=== PATIENT | female | born 1985 | race Caucasian/White ===

== ENCOUNTER 2016-12-01 09:29 | Emergency (ER) | payer BC ==
[~2016-12-01] VITALS: Ht 154.9 cm; Wt 72.5 kg
[~2016-12-01 09:29] MED LIST: ACET500C5 PO; IBUP-1542 PO; ONDA4TAB35 PO; PSEU120T51 PO; UDROBDM PO
[2016-12-01 09:38] VITALS: Ht 154.9 cm; Wt 72.5 kg
--- NOTE | 2016-12-01 10:20 | ERD ---
ER Documentation Chief Complaint Date/Time DATE: 12/01/16 TIME: 10:15 Chief Complaint R.side facial numbness x 4 days HPI 31-year-old female presents emergency department for numbness to the right side of her face. Stated that her coworker noticed that she has right-sided facial droop today at around 7:10 AM. She also stated that she has twitching below her right eye on the started 4 days ago/Monday. Patient is insisting CT brain and work-up. LMP: 11/11/2016 M1. No known drug allergies. Past medical history of GERD. No surgeries. Does not take any prescription medication at home. 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 Denies smoking, use of alcohol, use of illegal drugs. ROS All systems reviewed and are negative except as per history of present illness. Medications Home Meds Active Scripts Lorazepam* (Lorazepam*) 1 Mg Tablet, 1 MG PO Q8, #10 TAB Prov:PASILABANMECHEAR F 12/01/16 Hydroxyzine Hcl* (Hydroxyzine Hcl*) 10 Mg Tablet, 10 MG PO Q6H Y for ANXIETY, # 30 TAB Prov:RAJEEV RAHMAN F 12/01/16 Pseudoephedrine Hcl (Sudafed 12 Hour) 120 Mg Tablet.sa, 120 MG PO DAILY, #30 0 Refills Prov:ABE DUTTON PA-C 05/12/15 Guaifenesin-Dextromethorphan* (Robitussin* DM) 100MG/10MG/5ML Syrup, 5 ML PO Q6H Y for COUGH, #120 ML 0 Refills Prov:ABE DUTTON PA-C 05/12/15 Ondansetron Hcl* (Zofran* ODT) 4 mg -ODT Tab.disper, 4 MG PO DAILY Y for NAUSEA AND/OR VOMITING, #10 TAB 0 Refills Prov:ABE DUTTON PA-C 05/12/15 Ibuprofen* (Motrin*) 600 Mg Tab, 600 MG PO Q6, #30 TAB 0 Refills Prov:ABE DUTTON PA-C 05/12/15 Acetaminophen* (Tylophen*) 500 Mg Capsule, 1 CAP PO Q6H Y for PAIN AND OR ELEVATED TEMP, #30 CAP 0 Refills Prov:ABE DUTTON PA-C 05/12/15 Reported Medications [None] No Conflict Check 09/29/09 Allergies Allergies: Coded Allergies: No Known Allergy (Verified , 12/01/16) PMhx/Soc History of Surgery: No Anesthesia Reaction: No Hx Neurological Disorder: No Hx Respiratory Disorders: No Hx Cardiac Disorders: No Hx Psychiatric Problems: No Hx Miscellaneous Medical Probl: No Hx Alcohol Use: No Hx Substance Use: No Hx Tobacco Use: No Physical Exam Vitals Vital Signs Date Time Temp Pulse Resp B/P Pulse Ox O2 Delivery O2 Flow Rate FiO2 12/01/16 12:18 97.9 78 18 122/84 98 Room Air 12/01/16 09:38 97.6 89 16 134/88 99 Physical Exam Const: [] Head: Atraumatic Eyes: Normal Conjunctiva. PERRLA. No pain on eye movement. Able to close and open bilateral eyes without difficulty. Able to grimace. Symmetrical face. ENT: Normal External Ears, Nose and Mouth. Neck: Full range of motion..~ No meningismus. Resp: Clear to auscultation bilaterally. Respirations even and unlabored. Lung sounds are clear on auscultation. Cardio: Regular rate and rhythm, no murmurs Abd: Soft, non tender, non distended. Normal bowel sounds Skin: No petechiae or rashes Back: No midline or flank tenderness Ext: No cyanosis, or edema Neur: Awake and alert x 4. No facial droop. No unilateral deficits. Cranial nerves II-XII are intact. Romberg test is negative. Psych: Normal Mood and Affect Result Diagram: 12/01/16 1035 12/01/16 1035 Results 24 hrs Laboratory Tests Test 12/01/16 10:35 White Blood Count 7.110^3/ul Red Blood Count 4.9710^6/ul Hemoglobin 14.9g/dl Hematocrit 43.9% Mean Corpuscular Volume 88.3fl Mean Corpuscular Hemoglobin 30.0pg Mean Corpuscular Hemoglobin Concent 33.9g/dl Red Cell Distribution Width 12.8% Platelet Count 49196^3/UL Mean Platelet Volume 10.1fl Neutrophils % 78.6% Lymphocytes % 15.9% Monocytes % 4.4% Eosinophils % 0.6% Basophils % 0.4% Nucleated Red Blood Cells % 0.0/100WBC Neutrophils # 5.610^3/ul Lymphocytes # 1.110^3/ul Monocytes # 0.310^3/ul Eosinophils # 0.010^3/ul Basophils # 0.010^3/ul Nucleated Red Blood Cells # 0.010^3/ul Prothrombin Time 12.9Sec Prothrombin Time Ratio 1.0 INR International Normalized Ratio 0.97 Activated Partial Thromboplast Time 36.9Sec Sodium Level 141mmol/L Potassium Level 4.0mmol/L Chloride Level 107mmol/L Carbon Dioxide Level 24mmol/L Anion Gap 14 Blood Urea Nitrogen 8mg/dl Creatinine 0.66mg/dl Glucose Level 103mg/dl Calcium Level 9.2mg/dl Total Bilirubin 0.5mg/dl Direct Bilirubin 0.00mg/dl Indirect Bilirubin 0.5mg/dl Aspartate Amino Transf (AST/SGOT) 32IU/L Alanine Aminotransferase (ALT/SGPT) 50IU/L Alkaline Phosphatase 100IU/L Troponin I < 0.012ng/ml Total Protein 7.8g/dl Albumin 4.5g/dl Globulin 3.30g/dl Albumin/Globulin Ratio 1.36 Procedures/MDM 31-year-old female presents emergency department for numbness to the right side of her face. Stated that her coworker noticed that she has right-sided facial droop today at around 7:10 AM. She also stated that she has twitching below her right eye on the started 4 days ago/Monday. Patient is insisting CT brain and work-up. LMP: 11/11/2016 M1. No known drug allergies. Past medical history of GERD. No surgeries. Does not take any prescription medication at home. 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 Denies smoking, use of alcohol, use of illegal drugs. Physical exam: PERRLA. No pain on eye movement. Able to grimace without difficulty. Symmetrical face. No facial droop. No unilateral deficits. Cranial nerves II-XII are intact. Romberg test is negative. Respirations even and unlabored. Lung sounds are clear on auscultation. Disease process was explained to the patient. She verbalized understanding and agreed with the diagnostic tests, treatment, plan of care. EKG: Normal sinus rhythm with ventricular rate of 74 bpm. No evidence of acute myocardial infarction. No evidence of ischemia. CT of the brain: No evidence of intracranial masses hemorrhages or midline shift. Chronic right mastoiditis. Blood works: Negative. POC urine : Negative. Treatment: Ativan PO. Reevaluation: PERRLA. No pain on eye movement. Able to grimace without difficulty. Symmetrical face. No facial droop. No unilateral deficits. Cranial nerves II-XII are intact. Romberg test is negative. Respirations even and unlabored. Lung sounds are clear on auscultation. No neurovascular deficits. No neurological deficits. Ambulatory with steady gait. Stated that she is ready to go back to work. Prescription: Ativan. Hydroxyzine. Follow-up with primary care physician the next 24-48 hours. PCP to refer patient to ENT the next 24-48 hours. Come back here in the emergency department for any new symptoms or any worsening of symptoms. All questions and concerns are answered. Patient verbalized understanding and agreed the plan of care. Hemodynamically stable on discharge. Departure Diagnosis: Primary Impression: Anxiety Additional Impressions: Chronic mastoiditis Stress at home Condition: Stable Additional Instructions: Follow-up with primary care physician the next 24-48 hours. PCP to refer patient to ENT the next 24-48 hours. Come back here in the emergency department for any new symptoms or any worsening of symptoms. All questions and concerns are answered. Patient verbalized understanding and agreed the plan of care. RAJEEV RAHMAN Dec 01, 2016 10:20
[2016-12-01 10:46] LABS: BASOPHILS % 0.4 % (0.0-2.0); EOSINOPHILS % 0.6 % (0.0-7.0); HEMATOCRIT 43.9 % (37.0-47.0); HEMOGLOBIN 14.9 g/dl (12.0-16.0); LYMPHOCYTES # 1.1 10^3/ul (0.8-2.9); LYMPHOCYTES % 15.9 % (15.0-51.0); MEAN CORPUSCULAR HGB CONC 33.9 g/dl (32.0-37.0); MEAN CORPUSCULAR VOLUME 88.3 fl (82.0-101.0); MEAN PLATELET VOLUME 10.1 fl (7.4-10.4); MONOCYTE # 0.3 10^3/ul (0.3-0.9); MONOCYTES % 4.4 % (0.0-11.0); NEUTROPHIL # 5.6 10^3/ul (1.6-7.5); NEUTROPHILS % 78.6 % (39.0-77.0); PLATELET COUNT 300 10^3/UL (140-415); RED BLOOD COUNT 4.97 10^6/ul (4.20-5.40); RED CELL DISTRIBUTION WIDTH 12.8 % (11.5-14.5); WHITE BLOOD COUNT 7.1 10^3/ul (4.8-10.8)
[2016-12-01 11:04] LABS: INR 0.97; PROTIME 12.9 Sec (12.2-14.2)
[2016-12-01 11:05] LABS: PARTIAL THROMBOPLASTIN TIME 36.9 Sec (25.0-35.0)
[2016-12-01 11:09] LABS: ALANINE AMINOTRANSFERASE 50 IU/L (13-69); ALBUMIN 4.5 g/dl (3.3-4.9); ALBUMIN/GLOBULIN RATIO 1.36; ALKALINE PHOSPHATASE 100 IU/L (42-121); ANION GAP 14 (8-16); ASPARTATE AMINO TRANSFERASE 32 IU/L (15-46); BILIRUBIN,INDIRECT 0.5 mg/dl (0-1.1); BILIRUBIN,TOTAL 0.5 mg/dl (0.2-1.3); BLOOD UREA NITROGEN 8 mg/dl (7-20); CALCIUM 9.2 mg/dl (8.4-10.2); CARBON DIOXIDE 24 mmol/L (21-31); CHLORIDE 107 mmol/L (97-110); CREATININE 0.66 mg/dl (0.44-1.00); GLUCOSE 103 mg/dl (70-220); SODIUM 141 mmol/L (135-144); TOTAL PROTEIN 7.8 g/dl (6.1-8.1)
[2016-12-01 11:21] LABS: TROPONIN-I < 0.012 ng/ml (0.00-0.12)
--- NOTE | 2016-12-01 11:33 | RADRPT ---
PROCEDURE: CT Brain without contrast. CLINICAL INDICATION: Right-sided intermittent facial numbness TECHNIQUE: CT scan of the brain was performed on a multidetector high-resolution CT scan. Axial im aging was obtained of the brain without contrast administration. Coronal and sagittal reformatted i mages were obtained from the axial source images. Standard CT scan of the head without contrast prot ocols were performed. The total exam CTDI equals 44.95 mGy and the total exam DLP equals 728.23 mGy-cm. One or more of the following dose reduction techniques were used: - Automated exposure control. - Adjustment of the mA and/or kV according to patient size. Use of iterative reconstruction technique. COMPARISON: None. FINDINGS: The ventricular system and peripheral CSF spaces are unremarkable. Negative for intracranial masses hemorrhages or midline shift. The gagnon-white matter junction is unremarkable. The bones of the nahid rium are intact. 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 The remainder of the visualized para nasal sinuses are unremarkable. There is chronic right mastoiditis. The left mastoids are unremarkab le. IMPRESSION: 1. No evidence of intracranial masses hemorrhages or midline shift. 2. Chronic right mastoiditis. RPTAT:AAJJ Physician Jamel Date Time Electronically viewed and signed by Physician Jamel on 12/01/2016 11:32 BM/
[2016-12-01] MEDS ORDERED: HYDR-3010 PO (11:53)
[2016-12-01] MEDS ORDERED: LORA1TAB PO (11:54)
[2016-12-01 12:18] VITALS: BP 122/84; PULSE 78; RESP 18; TEMP 97.9
== END 2016-12-01 12:21 | disposition home or self-care (01) ==
LOC: FTE 09:29
DX: F41.9 Anxiety disorder, unspecified (principal); H70.11 Chronic mastoiditis, right ear; R07.9 Chest pain, unspecified; Z73.3 Stress, not elsewhere classified
CPT/HCPCS: 36415; 70450; 80053; 84484; 85025; 85610; 85730; 93005

== ENCOUNTER 2017-06-14 12:54 | Emergency (ER) | END 2017-06-14 15:54 | disposition home or self-care (01) ==

== ENCOUNTER 2017-12-08 07:49 | Emergency (ER) | END 2017-12-08 11:21 | disposition home or self-care (01) ==

== ENCOUNTER → 2018-05-16 | Outpatient (CLI) | payer BC ==
[~2018-05-16] MED LIST changes: +CEPH-443 PO; +GUAI5SYR2 PO; +HYDR-3029 PO; +LORA1TAB PO; +PSEU120T12 PO; -PSEU120T51 PO; -UDROBDM PO
--- NOTE | 2018-05-16 16:19 | RADRPT ---
Echocardiogram Report Patient Name: SHUN DIOPPatient ID: [id number] : 1985 (32y 6m)Study Date: 05/16/2018 9:27:18 AM Gender: FAccession #: [id number] Tech: Isa Peterson RDCS Location: EKG Ref.Physician: SUHAIL DOOLEY Height(Cm): BSA: Weight(Kg): Quality: AdequateAccount #: Procedures: Echocardiographic Report: Transthoracic echocardiogram with complete 2D, M-Mode, and doppler examination. Indications: Shortness of breath. Measurements: 2D/M Mode Doppler Measurement Value Normal Range Measurement Value Normal Range LVIDd 2D 4.2 [ 3.8 - 5.2 ] cm AV Peak Denny 1.5 [ 100.0 - 170.0 ] cm/sec LVIDs 2D 2.8 [ 2.2 - 3.5 ] cm AV Peak PG 9.0 [ 2.0 - 9.0 ] mmHg LVPWd 2D 0.9 [ 0.6 - 0.9 ] cm LVOT Peak Denny 1.0 [ 70.0 - 110.0 ] cm/sec IVSd 2D 1.0 [ 0.6 - 0.9 ] cm LVOT Peak PG 4.0 [ 2.0 - 6.0 ] mmHg IVS/LVPW 2D 1.2 ratio MV E Peak Denny 1.0 [ 60.0 - 130.0 ] cm/sec AoR Diam 2D 2.4 [ 2.3 - 3.1 ] cm MV A Peak Denny 0.6 [ 100.0 - 120.0 ] cm/sec LA/Ao 2D 1 ratio MV E/A 1.5 [ 0.8 - 1.5 ] ratio LA Dimen 2D 3.4 [ 2.7 - 3.8 ] cm MV Decel Time 141 [ 104 - 258 ] msec Lat E` Denny 0.2 [ 10.0 - 15.0 ] cm/sec MV E/A 1.5 [ 0.8 - 1.5 ] ratio TR Peak Denny 2.1 [ 100.0 - 280.0 ] cm/sec TR Peak PG 17.0 mmHg RVSP 20.0 [ 10.0 - 36.0 ] mmHg RA Pressure 3.0 mmHg Findings: Left Ventricle: Normal left ventricular systolic function. Normal left ventricular cavity size. Normal left ventricular wall thickness. Ejection fraction is visually estimated at 60 %. Tissue Doppler/Mitral Doppler indices are within normal limits. Right Ventricle: Normal right ventricular size. Normal right ventricular systolic function. Left Atrium: The left atrium is normal in size. Right Atrium: The right atrium is normal in size. Mitral Valve: Normal appearance and function of the mitral valve with trace physiologic regurgitation. Aortic Valve: Normal appearance of the aortic valve. No significant aortic stenosis or insufficiency. Tricuspid Valve: Normal appearance of the tricuspid valve. Estimated peak PA systolic pressure 20 mmHg. There is trace tricuspid regurgitation. Pulmonic Valve: Normal pulmonic valve appearance. Pericardium: Normal pericardium with no significant pericardial effusion. Aorta: Normal aortic root. IVC: Normal size and normal respiratory collapse consistent with normal right atrial pressure. Conclusions: Normal left ventricular systolic function. Normal left ventricular cavity size. Normal left ventricular wall thickness. Ejection fraction is visually estimated at 60 %. Tissue Doppler/Mitral Doppler indices are within normal limits. Normal appearance and function of the mitral valve with trace physiologic regurgitation. Normal appearance of the tricuspid valve. Estimated peak PA systolic pressure 20 mmHg. There is trace tricuspid regurgitation. Electronically Signed By: Suhail Dooley 2018-05-16 16:18:48 PDT
== END | disposition home or self-care (01) ==
LOC: EKG 09:14
PROVIDERS: ATTEND Internal Medicine
DX: R06.02 Shortness of breath (principal); R00.2 Palpitations
CPT/HCPCS: 93306

== ENCOUNTER → 2018-05-23 | Outpatient (CLI) | payer BC ==
--- NOTE | 2018-05-23 20:14 | CARRPT ---
DATE OF PROCEDURE: 05/23/2018 REASON FOR STRESS TESTING: Shortness of breath and chest pain, assess for ischemia. BASELINE VITAL SIGNS AND ELECTROCARDIOGRAM: Pulse of 74, blood pressure 121/85. Electrocardiogram s hows normal sinus rhythm, rate of 74, normal axis, normal intervals, isolated T-wave inversion in moon d 3. PROCEDURE IN DETAILS: The patient underwent standard Lexiscan infusion protocol over 10 seconds foll owed by radiolabeled tracer. The patient's test was stopped due to generalized fatigue, leg pains an d shortness of breath. The patient exercised for a total of 7-1/2 minutes completing 2-1/2 stages wi th fair exercise tolerance. The patient's maximal heart rate of 196, greater than 100% of maximum pr edicted heart rate and a peak double product. ELECTROCARDIOGRAM FINDINGS: During peak exercise, the patient did not develop any ST or T-wave weiss es diagnostic for cardiac ischemia. No documented PVCs. SYMPTOMS: The patient developed shortness of breath during stress testing, no chest pain. ECHOCARDIOGRAPHIC IMAGES: The patient's echocardiographic images at baseline revealed normal baselin e ejection fraction at peak stress. The patient's echocardiogram demonstrated augmentation of contra ction in all wall segments with almost complete obliteration of cavity. IMPRESSION: After exercising for a total of 7-1/2 minutes completing 2-1/2 stages with fair exercise tolerance, the patient reached greater than 100% of her maximum predicted heart rate and had a peak double product of greater than 34,000, the patient did not develop electrocardiogram changes consiste nt with cardiac ischemia and the patient's stress echo demonstrated augmentation of all wall segments not consistent with cardiac ischemia; thus, this stress test is negative for stress-induced cardiac ischemia. Dictated By: SUHAIL NIEVES/ARIES Conf#: [id number] DID#: [id number]
== END | disposition home or self-care (01) ==
LOC: EKG 07:53
PROVIDERS: ATTEND Internal Medicine
DX: R07.9 Chest pain, unspecified (principal); R00.2 Palpitations
CPT/HCPCS: 93350